=== PATIENT | male | born 1985 | race Caucasian/White ===

== ENCOUNTER 2018-04-13 16:55 | Inpatient (IN) ==
[2018-04-13 18:29] LABS: Baso % (Auto) 0.2 % (0.0-2.0); Eos % (Auto) 0.1 % (0.0-4.0); Hematocrit 48.6 % (39.0-51.0); Hemoglobin 17.9 gm/dL (13.0-17.0); Lymph # (Auto) 1.7 th/mm3 (1.0-4.8); Lymph % (Auto) 10.8 % (9.0-44.0); Mean Corpuscular Hemoglobin 33.6 pg (27.0-34.0); Mean Corpuscular Volume 91.2 fL (80.0-100.0); Mean Platelet Volume 9.5 fL (7.0-11.0); Mono # (Auto) 1.2 th/mm3 (0.0-0.9); Mono % (Auto) 7.4 % (0.0-8.0); Neut # (Auto) 12.8 th/mm3 (1.8-7.7); Neut % (Auto) 81.5 % (16.0-70.0); Platelet Count 237 th/mm3 (150-450); Red Blood Count 5.33 mil/mm3 (4.50-5.90); Red Cell Distribution Width 12.8 % (11.6-17.2); White Blood Count 15.7 th/mm3 (4.0-11.0)
[2018-04-13 18:30] LABS: Mean Corpuscular HGB Conc 36.8 % (32.0-36.0)
[2018-04-13 18:45] LABS: Alanine Aminotransferase 21 U/L (12-78); Albumin 5.4 g/dL (3.4-5.0); Anion Gap 10 meq/L (5-15); Aspartate Aminotransferase 25 U/L (15-37); Blood Urea Nitrogen 22 mg/dL (7-18); Calcium 9.2 mg/dL (8.5-10.1); Carbon Dioxide 25.8 meq/L (21.0-32.0); Chloride 102 meq/L (98-107); Glomerular Filtration Rate 64 mL/min (>89); Glucose,Random 85 mg/dL (74-106); Magnesium 2.4 mg/dL (1.5-2.5); Potassium 4.3 meq/L (3.5-5.1); Sodium 138 meq/L (136-145)
[2018-04-13 18:54] LABS: Alkaline Phosphatase 44 U/L (45-117); Total Protein 8.6 g/dL (6.4-8.2)
[2018-04-14 00:25] LABS: Bilirubin,Urine Negative (Negative); Calcium Oxalate Crystals,Urine Occasional /hpf; Clarity,Urine Hazy (Clear); Glucose,Urine (UA) Negative (Negative); Leukocyte Esterase,Urine Negative (Negative); Mucus,Urine Many /lpf (Occasional); Nitrite,Urine Negative (Negative); Specific Gravity,Urine 1.034 (1.002-1.035); Squamous Epithelial Cell,Urine <1 /hpf (0-5)
[2018-04-14 00:29] LABS: Color,Urine Dark-Yellow (Yellw/Straw); Urobilinogen,Urine 0.2 mg/dL (Less than 2)
[2018-04-14 00:36] LABS: Amphetamine Screen,Urine Neg (Neg); Barbiturate Screen,Urine Neg (Neg); Cannabinoid Screen,Urine Neg (Neg); Cocaine Screen,Urine Neg (Neg)
[2018-04-14 00:39] LABS: Opiate Screen,Urine Neg (Neg)
--- NOTE | 2018-04-14 02:03 | ED ---
HPI General Chief Complaint: Psychiatric Symptoms Stated Complaint: Pysch Eval/[facility] Time Seen by Provider: 04/13/18 19:28 Source: patient and police Mode of arrival: other (Police) Limitations: no limitations History of Present Illness HPI Narrative: Patient is brought to our facility under a [place] act. Patient was apparently making statements to family and law enforcement that did not make sense. Patient has been acting very manic and confused recently. Patient states he has no history of any mental health problems. MD complaint: Reports altered mental status Duration: constant History of same: No Relieving factors: none Exacerbating factors: none Context: Denies recent alcohol abuse and recent drug abuse Associated psychiatric symptoms: Reports racing thoughts and delusions Associated symptoms: Reports confusion Treatments prior to arrival: Reports placed on mental health hold Related Data Home Medications Medication Instructions Recorded Confirmed No Known Home Medications 04/13/18 04/13/18 Allergies Allergy/AdvReac Type Severity Reaction Status Date / Time No Known Allergies Allergy Verified 04/13/18 17:58 Review of Systems ROS: all other systems reviewed are negative [facility] Medical History Medical History Medical history unknown (Acute) Surgical History Surgical History No history of previous surgery (Acute) Social History Social History Substance History: Active Abuse Second Hand Smoke Exposure: Yes Smoking Status: Current every day smoker Tobacco Type: Cigarettes How Often Do You Have a Drink Containing Alcohol: 2 to 3 times a week Recent Travel in [facility] within the Last 8 Weeks: No Recent Out of Country Travel within the Last 8 Weeks: No Substance Abuse Detail Other: Substance Use Type Other:: DMT Immunization History Tetanus Immunization: Unable to Assess Exam Const General: anxious Orientation: alert, awake, oriented x3 and confused HENMT Head: normocephalic and atraumatic Nose: no nasal discharge and no epistaxis Mouth: moist mucous membranes Eyes Sclera: normal sclerae Pupils: PERRL Neck Neck: trachea midline and no JVD Resp Effort & Inspection: no use of accessory muscles Auscultation: clear to auscultation bilaterally Cardio Rate: regular rate Rhythm: regular rhythm Heart Sounds: no murmurs GI Inspection: non-distended Palpation: soft, no hepatosplenomegaly and nontender Skin General: dry skin (warm) Neuro General: alert and awake Cranial Nerves: other Speech: speech normal Motor: no movement abnormalities noted Extrem General: normal to inspection, no clubbing, no cyanosis and no edema Psych Speech and Movement: agitated Mood: expansive, manic mood and paranoid Affect: labile affect and anxious affect Attitude: belligerent Judgment: judgment good Course Initial Documented Vital Signs Temperature 98 F 04/13/18 17:48 Pulse Rate 118 H 04/13/18 17:48 Respiratory Rate 20 04/13/18 17:48 Blood Pressure 137/92 H 04/13/18 17:48 Pulse Oximetry 97 04/13/18 17:48 Last Documented Vital Signs Temperature 98 F 04/13/18 17:52 Pulse Rate 118 H 04/13/18 17:52 Respiratory Rate 20 04/13/18 17:52 Blood Pressure 137/92 H 04/13/18 17:52 Pulse Oximetry 97 04/13/18 17:52 Medical Decision Making MDM Narrative Medical decision making narrative: Patient is brought to our facility under a [place] act. Patient was apparently making statements to family and law enforcement that did not make sense. Patient has been acting very manic and confused recently. Patient states he has no history of any mental health problems. physical exam shows patient who is agitative, expansive, paranoid and manic flight of thought and keeps asking if we are god. Patient will not sit still and is pacing Patient given a 2 mg dose of p.o. Ativan Patient will receive basic lab work and a tox screen. Lab work is unremarkable. Drug screen is negative. Patient is medically cleared at 2200 Await psychiatric evaluation in the morning Medical Screen Exam Complete: Yes Emergency Medical Condition: Yes Differential Diagnosis Differential Diagnosis: Psychosis, michelle, anxiety, depression Lab Data Lab results reviewed: Yes I reviewed the patient's lab results. Result diagrams: 04/13/18 17:15 04/13/18 17:15 Lab Results 04/13/18 04/13/18 04/13/18 Range/Units 17:15 17:15 17:15 WBC 15.7 H (4.0-11.0) th/mm3 RBC 5.33 (4.50-5.90) mil/mm3 Hgb 17.9 H (13.0-17.0) gm/dL Hct 48.6 (39.0-51.0) % MCV 91.2 (80.0-100.0) fL MCH 33.6 (27.0-34.0) pg MCHC 36.8 H (32.0-36.0) % RDW 12.8 (11.6-17.2) % Plt Count 237 (150-450) th/mm3 MPV 9.5 (7.0-11.0) fL Prelim Diff (Auto) Slide review pending Neut % (Auto) 81.5 H (16.0-70.0) % Lymph % (Auto) 10.8 (9.0-44.0) % [place] % (Auto) 7.4 (0.0-8.0) % Eos % (Auto) 0.1 (0.0-4.0) % Baso % (Auto) 0.2 (0.0-2.0) % Neut # (Auto) 12.8 H (1.8-7.7) th/mm3 Lymph # (Auto) 1.7 (1.0-4.8) th/mm3 [place] # (Auto) 1.2 H (0.0-0.9) th/mm3 Eos # (Auto) 0.0 (0.0-0.4) th/mm3 Baso # (Auto) 0.0 (0.0-0.2) th/mm3 WBC Differential . Diff Scan Auto diff confirmed Differential Comment . Sodium 138 (136-145) meq/L Potassium 4.3 (3.5-5.1) meq/L Chloride 102 (98-107) meq/L Carbon Dioxide 25.8 (21.0-32.0) meq/L Anion Gap 10 (5-15) meq/L BUN 22 H (7-18) mg/dL Creatinine 1.31 H (0.60-1.30) mg/dL Estimated GFR 64 L (>89) mL/min Random Glucose 85 (74-106) mg/dL Calcium 9.2 (8.5-10.1) mg/dL Magnesium 2.4 (1.5-2.5) mg/dL Total Bilirubin 1.4 H (0.2-1.0) mg/dL AST 25 (15-37) U/L ALT 21 (12-78) U/L Alkaline Phosphatase 44 L (45-117) U/L Total Protein 8.6 H (6.4-8.2) g/dL Albumin 5.4 H (3.4-5.0) g/dL TSH 1.110 (0.358-3.740) uIU/mL Urine Color (Yellw/Straw) Urine Clarity (Clear) Urine pH (5.0-8.5) Ur Specific [place] (1.002-1.035) Urine Protein (Neg-Trace) mg/dL Urine Glucose (UA) (Negative) mg/dL Urine Ketones (Negative) mg/dL Urine Occult Blood (Negative) Urine Nitrate (Negative) Urine Bilirubin (Negative) Urine Urobilinogen (Less than 2) mg/dL Ur Leukocyte Esterase (Negative) Urine RBC (0-3) /hpf Urine WBC (0-5) /hpf Ur Squamous Epith Cells (0-5) /hpf Calcium Oxalate Crystal (None) /hpf Granular Casts (None) /lpf Urine Mucus (Occasional) /lpf Ur Microscopic Review Salicylates Less than 1.7 L (2.8-20.0) mg/dL Urine Opiates Screen (Neg) Acetaminophen Less than 2.0 L (10.0-30.0) mcg/mL Ur Barbiturates Screen (Neg) Ur Amphetamines Screen (Neg) U Benzodiazepines Scrn (Neg) Urine Cocaine Screen (Neg) U Cannabinoids Screen (Neg) Serum Alcohol Less than 3 (0-5) mg/dL 04/13/18 04/13/18 Range/Units 23:57 23:57 WBC (4.0-11.0) th/mm3 RBC (4.50-5.90) mil/mm3 Hgb (13.0-17.0) gm/dL Hct (39.0-51.0) % MCV (80.0-100.0) fL MCH (27.0-34.0) pg MCHC (32.0-36.0) % RDW (11.6-17.2) % Plt Count (150-450) th/mm3 MPV (7.0-11.0) fL Prelim Diff (Auto) Neut % (Auto) (16.0-70.0) % Lymph % (Auto) (9.0-44.0) % [place] % (Auto) (0.0-8.0) % Eos % (Auto) (0.0-4.0) % Baso % (Auto) (0.0-2.0) % Neut # (Auto) (1.8-7.7) th/mm3 Lymph # (Auto) (1.0-4.8) th/mm3 [place] # (Auto) (0.0-0.9) th/mm3 Eos # (Auto) (0.0-0.4) th/mm3 Baso # (Auto) (0.0-0.2) th/mm3 WBC Differential Diff Scan Differential Comment Sodium (136-145) meq/L Potassium (3.5-5.1) meq/L Chloride (98-107) meq/L Carbon Dioxide (21.0-32.0) meq/L Anion Gap (5-15) meq/L BUN (7-18) mg/dL Creatinine (0.60-1.30) mg/dL Estimated GFR (>89) mL/min Random Glucose (74-106) mg/dL Calcium (8.5-10.1) mg/dL Magnesium (1.5-2.5) mg/dL Total Bilirubin (0.2-1.0) mg/dL AST (15-37) U/L ALT (12-78) U/L Alkaline Phosphatase (45-117) U/L Total Protein (6.4-8.2) g/dL Albumin (3.4-5.0) g/dL TSH (0.358-3.740) uIU/mL Urine Color Dark-yellow H (Yellw/Straw) Urine Clarity Hazy H (Clear) Urine pH 6.0 (5.0-8.5) Ur Specific [place] 1.034 (1.002-1.035) Urine Protein 100 H (Neg-Trace) mg/dL Urine Glucose (UA) Negative (Negative) mg/dL Urine Ketones 20 (Negative) mg/dL Urine Occult Blood Negative (Negative) Urine Nitrate Negative (Negative) Urine Bilirubin Negative (Negative) Urine Urobilinogen 0.2 (Less than 2) mg/dL Ur Leukocyte Esterase Negative (Negative) Urine RBC 1 (0-3) /hpf Urine WBC 2 (0-5) /hpf Ur Squamous Epith Cells <1 (0-5) /hpf Calcium Oxalate Crystal Occasional H (None) /hpf Granular Casts 2 (None) /lpf Urine Mucus Many H (Occasional) /lpf Ur Microscopic Review Not Reportable Salicylates (2.8-20.0) mg/dL Urine Opiates Screen Neg (Neg) Acetaminophen (10.0-30.0) mcg/mL Ur Barbiturates Screen Neg (Neg) Ur Amphetamines Screen Neg (Neg) U Benzodiazepines Scrn Neg (Neg) Urine Cocaine Screen Neg (Neg) U Cannabinoids Screen Neg (Neg) Serum Alcohol (0-5) mg/dL Discharge Plan Discharge Disposition Patient Disposition: Sign Out(ED Internal Use Only) Discharge Condition Condition: Stable Discharge Details Diagnosis: Acute psychosis Physicians Team ED Provider: Scott Garcia ED Midlevel Provider: Hillary Jaeger Primary Care Provider: UNKNOWN, Rxs /Orders / Referrals /Forms Prescriptions: No Action No Known Home Medications RF: 0 Discharge Interventions Interventions: Vital Signs Last Done: 04/13/18 17:52 Status ED Status: With Doctor
[2018-04-14] MEDS ORDERED: LORazepam 1 MG Tablet PO PRN (14:14)
[2018-04-14] MEDS ORDERED: Haloperidol Inj 5 MG/ML Ampul IV.PUSH PRN (14:14)
[2018-04-14] MEDS ORDERED: Bisacodyl 10 MG Supp RECTAL PRN (14:14)
[2018-04-14] MEDS ORDERED: Aluminum/Magnesium/Simethacone Susp 30 ML UDC PO PRN (14:14)
[2018-04-14] MEDS ORDERED: Haloperidol Inj 5 MG/ML Ampul IM STA (14:18)
--- NOTE | 2018-04-14 14:25 | P.HPPSY ---
Provisional Diagnosis Admission Date: April 13, 2018 16:55 [place] I.: unspecified psychosis vs Substance induced pathosis Competence Certification of Person's Competence To Provide Express and Informed Consent I have personally examined Dario Haskins, a person being served at [facility] on, April 14, 2018 1421. Express and informed consent means consent voluntarily given in writing, by a competent person, after sufficient explanation and disclosure of the subject matter involved to enable the person to make a knowing and willful decision without any element of force, fraud, deceit, duress, or other form of constraint or coercion. This person is 18 years of age or older, is not now known to be incompetent to consent to treatment with a guardian advocate, and does not have a health care surrogate or proxy currently making medical treatment decisions. I have found this person to be one of the following: [] Competent to provide express and informed consent, as defined above, for voluntary admission to this facility and is competent to provide express and informed consent for treatment. He/she has the consistent capacity to make well reasoned, willful, and knowing decisions concerning his or her medical or mental health treatment. The person fully and consistently understands the purpose of the admission for examination/placement and is fully capable of personally exercising all rights [place] [] Incompetent to provide express and informed consent to voluntary admission, and this is incompetent to provide express and informed consent to treatment. The person must be transferred to involuntary status and a petition for a guardian advocate filed with the Circuit Court. [x] Refusing to provide express and informed consent to voluntary admission but is competent to provide express and informed consent for treatment. The person must be discharged or transferred to involuntary status. Form shall be completed within 24 hours of a person's arrival at the receiving facility and filed in the clinical record of each person: 1. Admitted on a voluntary basis 2. Permitted to provide express and informed consent to his/her own treatment 3. Allowed to transfer from involuntary to voluntary status 4. Prior to permitting a person to consent to his or her own treatment after having been previously found incompetent to consent to treatment. History of Present Illness Capacity: Lacks capacity History of Present Illness: The patient is a 32 year-old man, unknown for [facility], Patient is brought to our facility under a [place] act. Patient was apparently making statements to family and law enforcement that did not make sense. Patient has been acting very manic and confused recently. Patient states he has no history of any mental health problems. CC "I am God". On the psychiatric evaluation today the patient remains quite disorganized, loud, stating that he is god and he must go to [facility]. He is repetitive, unable to follow verbal directions, unable to provide any meaningful information for the psychiatric assessment. At some point the patient comes extremely agitated and disruptive in the unit and he had to be medicated with 5 mg of Haldol and 2 of Ativan IM. As per chart revision this is patient's first time at [facility], there is no family members or collateral information listed. The patient has been in the ER for about 28 hours now, and off for complete metabolization of most drug. His U tox is negative. [facility] - History History Provided By: Patient - Medical History Medical History: Medical History (Last Reviewed 04/14/18 @ 02:00 by Hillary Jaeger) Medical history unknown - Surgical History Surgical History: Surgical History (Last Reviewed 04/14/18 @ 02:00 by Hillary Jaeger) No history of previous surgery - Tobacco History Second Hand Smoke Exposure: Yes Tobacco Use In Past 30 Days: Yes Smoking Status: Current every day smoker Tobacco Type: Cigarettes - Alcohol History How Often Do You Have a Drink Containing Alcohol: 2 to 3 times a week - Substance Use History Substance History: Active Abuse - Substance Use Type Other Type: DMT - Travel History Recent Travel in the [place] Within the Last 8 Weeks: No Recent Travel Out of the Country Within the Last 8 Weeks: No - Immunization History Tetanus Immunization: Unable to Assess Medications and Allergies Active Medications: Active Medications Al Hydrox/Mg Hydrox/Simethicone (Mag-Al Plus Susp Liq) 30 ml PO Q6H PRN PRN Reason: DYSPEPSIA Al Hydroxide/Mg Hydroxide (Milk Of Magnesia Liq) 30 ml PO Q12H PRN PRN Reason: Mild Constipation Bisacodyl (Dulcolax Supp) 10 mg RECTAL DAILY PRN PRN Reason: SEVERE CONSITIPATION Flumazenil (Romazecon Inj) 0.2 mg IV.PUSH Q1M PRN PRN Reason: OVERSEDATION Haloperidol Lactate (Haldol Inj) 1 mg IV.PUSH Q15M PRN PRN Reason: for severe agitation Haloperidol Lactate (Haldol Inj) 5 mg IM STAT STA Stop: 04/14/18 14:19 Lactulose (Lactulose Liq) 30 ml PO DAILY PRN PRN Reason: SEVERE CONSITIPATION Lorazepam (Ativan) 1 mg PO Q4H PRN PRN Reason: for CIWA 8-10 Lorazepam (Ativan) 2 mg PO Q2H PRN PRN Reason: for CIWA 11-14 Lorazepam (Ativan Inj) 2 mg IV.PUSH Q2H PRN PRN Reason: for CIWA 11-14 Lorazepam (Ativan Inj) 2 mg IV.PUSH Q15M PRN PRN Reason: for CIWA > 20 Lorazepam (Ativan Inj) 1 mg IV.PUSH Q4H PRN PRN Reason: for CIWA 8-10 Lorazepam (Ativan Inj) 2 mg IV.PUSH STAT STA Stop: 04/14/18 14:20 Senna/Docusate Sodium (Nat-Colace) 1 tab PO BID DAVID Sennosides (Senokot) 17.2 mg PO Q12H PRN PRN Reason: Moderate Constipation Allergies Allergy/AdvReac Type Severity Reaction Status Date / Time No Known Allergies Allergy Verified 04/13/18 17:58 Home Medications Medication Instructions Recorded Confirmed Type No Known Home Medications 04/13/18 04/13/18 History Results - Labs CBC & Chem 7: 04/13/18 17:15 04/15/18 06:50 Labs: Laboratory Results - last 24 hr 04/13/18 04/13/18 04/13/18 17:15 17:15 17:15 WBC 15.7 H RBC 5.33 Hgb 17.9 H Hct 48.6 MCV 91.2 MCH 33.6 MCHC 36.8 H RDW 12.8 Plt Count 237 MPV 9.5 Prelim Diff (Auto) Slide review pending Neut % (Auto) 81.5 H Lymph % (Auto) 10.8 [place] % (Auto) 7.4 Eos % (Auto) 0.1 Baso % (Auto) 0.2 Neut # (Auto) 12.8 H Lymph # (Auto) 1.7 [place] # (Auto) 1.2 H Eos # (Auto) 0.0 Baso # (Auto) 0.0 WBC Differential . Diff Scan Auto diff confirmed Differential Comment . Sodium 138 Potassium 4.3 Chloride 102 Carbon Dioxide 25.8 Anion Gap 10 BUN 22 H Creatinine 1.31 H Estimated GFR 64 L Random Glucose 85 Calcium 9.2 Magnesium 2.4 Total Bilirubin 1.4 H AST 25 ALT 21 Alkaline Phosphatase 44 L Total Protein 8.6 H Albumin 5.4 H TSH 1.110 Urine Color Urine Clarity Urine pH Ur Specific [place] Urine Protein Urine Glucose (UA) Urine Ketones Urine Occult Blood Urine Nitrate Urine Bilirubin Urine Urobilinogen Ur Leukocyte Esterase Urine RBC Urine WBC Ur Squamous Epith Cells Calcium Oxalate Crystal Granular Casts Urine Mucus Ur Microscopic Review Salicylates Less than 1.7 L Urine Opiates Screen Acetaminophen Less than 2.0 L Ur Barbiturates Screen Ur Amphetamines Screen U Benzodiazepines Scrn Urine Cocaine Screen U Cannabinoids Screen Serum Alcohol Less than 3 04/13/18 04/13/18 23:57 23:57 WBC RBC Hgb Hct MCV MCH MCHC RDW Plt Count MPV Prelim Diff (Auto) Neut % (Auto) Lymph % (Auto) [place] % (Auto) Eos % (Auto) Baso % (Auto) Neut # (Auto) Lymph # (Auto) [place] # (Auto) Eos # (Auto) Baso # (Auto) WBC Differential Diff Scan Differential Comment Sodium Potassium Chloride Carbon Dioxide Anion Gap BUN Creatinine Estimated GFR Random Glucose Calcium Magnesium Total Bilirubin AST ALT Alkaline Phosphatase Total Protein Albumin TSH Urine Color Dark-yellow H Urine Clarity Hazy H Urine pH 6.0 Ur Specific [place] 1.034 Urine Protein 100 H Urine Glucose (UA) Negative Urine Ketones 20 Urine Occult Blood Negative Urine Nitrate Negative Urine Bilirubin Negative Urine Urobilinogen 0.2 Ur Leukocyte Esterase Negative Urine RBC 1 Urine WBC 2 Ur Squamous Epith Cells <1 Calcium Oxalate Crystal Occasional H Granular Casts 2 Urine Mucus Many H Ur Microscopic Review Not Reportable Salicylates Urine Opiates Screen Neg Acetaminophen Ur Barbiturates Screen Neg Ur Amphetamines Screen Neg U Benzodiazepines Scrn Neg Urine Cocaine Screen Neg U Cannabinoids Screen Neg Serum Alcohol Exam Vital signs: Vital Signs 04/13/18 17:48 04/13/18 17:52 Temperature 98 F 98 F Pulse Rate 118 H 118 H Respiratory Rate 20 20 Blood Pressure 137/92 H 137/92 H Pulse Oximetry 97 97 Intake & Output 04/13/18 04/14/18 04/14/18 18:59 06:59 18:59 Weight 130 kg Mental Status Examination Appearance: Dirty, Disheveled Consciousness: Alert Orientation: Person Speech: Incoherent Language: Perseveration Fund of Knowledge: Poor Attention and Concentration: Inadequate Memory: Impaired Affect: Irritable Thought Process & Associations: Loose associations Thought Content: Bizarre thinking, Delusional Hallucination Type: None Delusion Type: Bizarre, Paranoid Suicidal Ideation: No Suicidal Plan: No Suicidal Intention: No Homicidal Ideation: No Homicidal Plan: No Homicidal Intention: No Insight: Poor Judgment: Poor Assessment and Plan - Assessment (1) Unspecified psychosis Code(s): F29 - Unspecified psychosis not due to a substance or known physiological condition Status: Acute - Plan Plan: On the psychiatric evaluation today the patient presents acutely psychotic, extremely odd/bizarre, religiously preoccupied, non reliable and disorganized information. Becomes extremely agitated and verbally hostile during evaluation, unable to be descaled, finally medicated with Haldol 5 mg and Ativan 2 mg im. Order Haldol 5 mg bid, [facility] protocol. Justification for Continued Inpatient Stay: To be admitted in psychiatry.
[2018-04-14] MEDS ORDERED: Haloperidol Inj 5 MG/ML Ampul IM PRN (14:57)
--- NOTE | 2018-04-14 17:26 | CT ---
EXAM DATE: 04/14/2018 5:21 PM EST AGE/SEX: 32 years / Male INDICATIONS: Altered mental status. CLINICAL DATA: This is the patient's subsequent encounter. Patient reports that signs and symptoms h ave been present for 1 day and indicates a pain score of 0/10. MEDICAL/SURGICAL HISTORY: None. None. RADIATION DOSE: 34.94 CTDI (mGy) COMPARISON: No prior exams available for comparison. TECHNIQUE: CT of the head without contrast. Using automated exposure control and adjustment of the mA and/or kV according to patient size, radiation dose was kept as low as reasonably achievable to ob tain optimal diagnostic quality images. DICOM format image data is available electronically for revi ew and comparison. FINDINGS: Cerebrum: The ventricles are normal for age. No evidence of midline shift, mass lesion, hemorrhage or acute infarction. No extraaxial fluid collections are seen. Posterior Fossa: The cerebellum and brainstem are intact. The 4th ventricle is midline. The cerebe llopontine angle is unremarkable. Extracranial: The visualized portion of the orbits is intact. Skull: The calvaria is intact. No evidence of skull fracture. CONCLUSION: 1. Negative CT Head non contrast. . Electronically signed by: Jose Vergara MD Board Certified Radiologist 04/14/2018 5:25 PM EST
[2018-04-14] MEDS: Senna/Docusate Sodium 8.6/50 MG Tablet PO SCH (20:19)
[2018-04-15 06:17] VITALS: RESP 18; O2SAT 97
[2018-04-15 07:32] LABS: Calcium 8.6 mg/dL (8.5-10.1); Carbon Dioxide 30.3 meq/L (21.0-32.0); Potassium 3.9 meq/L (3.5-5.1)
[2018-04-15 07:37] LABS: Chol/HDL Ratio 2.65 Ratio; HDL Cholesterol 49.7 mg/dL (40.0-60.0)
[2018-04-15] MEDS: Senna/Docusate Sodium 8.6/50 MG Tablet PO SCH ×2 (10:12→20:22)
[2018-04-15] MEDS ORDERED: Temazepam 15 MG Capsule PO PRN (10:45)
--- NOTE | 2018-04-15 16:35 | P.PNPSY ---
Subjective Chief Complaint: Follow-up for acute psychosis Remarks: Patient seen for follow-up, chart reviewed, patient discussed with nursing staff ; we reviewed the patient's mood, thoughts, and behaviors from overnight and this morning. Nurse reports that the patient has been calm and cooperative this morning and has attended group therapies. The patient was seen individually and he reports good response to initial treatment and inpatient stabilization. He expressed appreciation for being in given his emergency treatment order the night before as he believes that the dose of antipsychotic as well as benzodiazepine helped stabilize his mind. He gives a history of worsening mood since his father in November but has further worsened with increased anxiety in association with the stress of being the executor of his father's will. Patient reports that he became increasingly isolated and having anxious ruminations over the last month. He describes himself as having obsessive-compulsive disorder and he reports that this also worsened over the last month. He describes a "rigorous self questioning going on in my mind My very imagination ran wild and I started to believe that my own thoughts with a Commandments of God I know that is crazy." The patient also endorses hypnagogue neck and hypnopompic visual hallucinations over the last week. The patient reports feeling safe on the unit and denies current auditory or visual hallucinations. Review of Systems All other systems reviewed negative except as stated in HPI Mental Status Examination Appearance: Disheveled Consciousness: Alert Orientation: Person Motor Activity: Normal gait Speech: Unremarkable Language: Adequate Fund of Knowledge: Adequate Attention and Concentration: Adequate Memory: Unremarkable Mood: Anxious Affect: Anxious Thought Process & Associations: Intact Thought Content: Appropriate Hallucination Type: None Delusion Type: None Suicidal Ideation: No Suicidal Plan: No Suicidal Intention: No Homicidal Ideation: No Homicidal Plan: No Homicidal Intention: No Insight: Fair Judgment: Impulsive Assessment and Plan - Assessment (1) Unspecified psychosis Code(s): F29 - Unspecified psychosis not due to a substance or known physiological condition Status: Acute - Plan Plan: 1. Continue with admission to inpatient psychiatry at [facility]; involuntary/competent legal status. 2. Routine unit precautions. 3. Comfort medications ordered for as needed treatment of constipation, heartburn, diarrhea, and mild pain. 4. Start Risperdal 1 mg twice a day for treatment of psychosis. 5. Start trazodone 100 mg at bedtime for insomnia. 6. Start Restoril 30 mg at bedtime as needed for insomnia. 7. Patient will participate in the unit programming to include group therapies , milieu therapy and recreational therapies. 8. Discharge planning: Patient lives in [facility] and will need discharge follow-up assessments with psychiatry in his local area. Anticipate discharge within the next 1-2 days if he continues to stabilize rapidly as he has over the first day. Justification for Continued Inpatient Stay: Patient remains an elevated risk for self-harm due to recent acute psychotic break and will require further inpatient stabilization and preparation of a safe discharge plan. Moving patient to a less restrictive environment at this time may result in decompensation.
[2018-04-15 16:44] LABS: Hemoglobin A1c 5.1 % (4.3-6.0)
[2018-04-15] MEDS ORDERED: traZODone 100 MG Tablet PO SCH (21:00)
[2018-04-16 05:43] VITALS: BP 97/54; PULSE 80; TEMP 97.6
[2018-04-16] MEDS: Senna/Docusate Sodium 8.6/50 MG Tablet PO SCH (08:20)
--- NOTE | 2018-04-16 11:07 | P.DSPSY ---
Psychiatry Discharge Summary Inpatient Psychiatric care?: Yes Advance Directives: No Mental Health Advance Directive: No Health Care Proxy: No - Admission Admission Date: April 14, 2018 15:17 - Admission Diagnosis (1) Unspecified psychosis Code(s): F29 - Unspecified psychosis not due to a substance or known physiological condition Brief History: The patient is a 32 year-old man, unknown for [facility], Patient is brought to our facility under a [place] act. Patient was apparently making statements to family and law enforcement that did not make sense. Patient has been acting very manic and confused recently. Patient states he has no history of any mental health problems. CC "I am God". On the psychiatric evaluation today the patient remains quite disorganized, loud, stating that he is god and he must go to [facility]. He is repetitive, unable to follow verbal directions, unable to provide any meaningful information for the psychiatric assessment. At some point the patient comes extremely agitated and disruptive in the unit and he had to be medicated with 5 mg of Haldol and 2 of Ativan IM. As per chart revision this is patient's first time at [facility], there is no family members or collateral information listed. The patient has been in the ER for about 28 hours now, and off for complete metabolization of most drug. His U tox is negative. Tobacco Use In Past 30 Days: Yes How Often Do You Have a Drink Containing Alcohol: 2 to 3 times a week Hospital Course: Patient was admitted to a locked, inpatient psychiatric unit. Appropriate precautions were in place throughout patient's hospital stay. Patient was seen and examined on the unit by psychiatry and also visited by counselor. 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 He was started on Risperdal 0.5 mg twice a day as well as trazodone 100 mg at bedtime for sleep. The patient tolerated these medications and reported 9 hours of restorative sleep. There was a good response to treatment noted by nursing and provider observations and the patient reported improvements in mood, anxiety, and there was no evidence of any suicidality or homicidality at time of discharge. Psychiatric follow- up as arranged by counselor. Patient is also to follow up with primary care. I have counseled the patient to abstain from substances of abuse including cannabis and have counseled patient to return to the psychiatric emergency room for any concerning symptoms as part of a general safety plan. - Discharge Discharge Date: 04/16/18 - Discharge Diagnosis (1) Unspecified psychosis Code(s): F29 - Unspecified psychosis not due to a substance or known physiological condition Status: Acute Discharge Disposition: Home - Discharge Instructions Discharge Diet: Regular Diet Activities You Can Perform: Regular- No Restrictions - Discharge Time > 30 minutes Mental Status Examination Appearance: Disheveled Consciousness: Alert Orientation: Person Motor Activity: Normal gait Speech: Unremarkable Language: Adequate Fund of Knowledge: Adequate Attention and Concentration: Adequate Memory: Unremarkable Mood: Anxious Affect: Appropriate Thought Process & Associations: Intact Thought Content: Appropriate Hallucination Type: None Delusion Type: None Suicidal Ideation: No Suicidal Plan: No Suicidal Intention: No Homicidal Ideation: No Homicidal Plan: No Homicidal Intention: No Insight: Fair Judgment: Impulsive Discharge/Advance Care Plan - Results Vital Signs: Last Vital Signs Temp 97.6 F 04/16/18 05:41 Pulse 80 04/16/18 05:41 Resp 18 04/16/18 05:41 BP 97/54 L 04/16/18 05:41 Pulse Ox 97 04/16/18 05:41 Lab Results: Abnormal Lab Results 04/15/18 06:50 Hemoglobin A1c 5.1 Laboratory Results Hemoglobin A1c 5.1 % (4.3-6.0) 04/15/18 06:50 Triglycerides 83 mg/dL (42-150) 04/15/18 06:50 Cholesterol 132 mg/dL (120-200) 04/15/18 06:50 LDL Cholesterol, Calc 66 mg/dL (0-99) 04/15/18 06:50 HDL Cholesterol 49.7 mg/dL (40.0-60.0) 04/15/18 06:50 TSH 1.110 uIU/mL (0.358-3.740) 04/13/18 17:15 Summary of Procedures: None ordered Imaging: ITS Impressions Head CT 04/14/18 14:07 CONCLUSION: 1. Negative CT Head non contrast. . Pending Results: None - Medications Number of antipsychotic medications at discharge: 1 - Discharge Care Plan Goals to Promote Your Health: * To prevent worsening of your condition and complications * To maintain your health at the optimal level Directions to Meet Your Goals: Take your medications as prescribed Follow your dietary instruction Follow activity as directed Keep your appointments as scheduled Take your immunizations and boosters as scheduled If your symptoms worsen call your PCP, if no PCP go to Urgent Care Center or Emergency Room For 19/11 questions related to your inpatient stay or results of tests pending at discharge, please contact Dr. Noe Prescott MD at Smoking is Dangerous to Your Health. Avoid second hand smoking
== END 2018-04-16 16:55 | disposition home or self-care (01) ==
LOC: NEPJ 16:55 → NEDA 04-14 15:17 → H270 04-14 17:26
PROVIDERS: ADMIT Psychiatry & Neurology Psychiatry; ATTEND Psychiatry & Neurology Psychiatry